=== PATIENT | female | born 1980 | race Hispanic/Latino ===

== ENCOUNTER 2018-01-02 18:20 | Emergency (ER) | payer BC ==
[2018-01-02 19:11] LABS: Urine Blood TRACE (NEG); Urine Glucose NEGATIVE (NEG); Urine Protein NEGATIVE (NEG); Urine Specific Gravity 1.025 (1.005-1.030)
[2018-01-02 19:21] LABS: Absolute Lymphocytes (CBC) 1.7 K/uL (0.7-4.9); Absolute Monocytes 0.8 K/uL (0.1-1.3); Absolute Neutrophil 4.1 K/uL (1.8-8.0); Basophils % 0.5 % (0-1.3); Eosinophils % 4.8 % (0-4.4); Lymphocytes % 24.2 % (15.3-44.8); MCH 27.3 pg (27.0-35.0); MCV 83.1 fL (80-100); MPV 7.6 fL (7.6-11.3); Monocytes % 11.2 % (3.3-12.3); RBC Red Blood Cell Count 4.33 M/uL (3.86-4.86)
[2018-01-02 19:37] LABS: ALT/SGPT 102 U/L (12-78); AST/SGOT 50 U/L (15-37); Albumin 3.4 g/dL (3.4-5.0); Alkaline Phosphatase 159 U/L (45-117); BUN Blood Urea Nitrogen 10 mg/dL (7-18); Bicarbonate 27 mmol/L (21-32); Bilirubin Direct < 0.1 mg/dL (0-0.2); Bilirubin Total 0.1 mg/dL (0.2-1.0); Glucose Level 94 mg/dL (74-106); Lipase 262 U/L (73-393); Potassium 4.1 mmol/L (3.5-5.1); Protein, Total 7.5 g/dL (6.4-8.2); Sodium Level 141 mmol/L (136-145)
[2018-01-02] MEDS ORDERED: AZITHROMYCIN 250 MG TAB ONE (21:52)
[2018-01-02] MEDS ORDERED: CEFTRIAXONE/SWI 1gm 1 GM/10 ML SYR ONE (21:52)
--- NOTE | 2018-01-02 22:14 | RAD REPORT ---
EXAM DESCRIPTION: US - Abdomen Exam Limited - 01/02/2018 9:56 pm CLINICAL HISTORY: elevated liver enzymes COMPARISON: No comparisons FINDINGS: The gallbladder demonstrates significant contraction, limiting assessment. No gross stones seen. No pericholecystic fluid or gallbladder wall thickening. The common bile duct is normal measur ing 2 mm. The liver demonstrates no findings of intrahepatic biliary dilatation. IMPRESSION: Very contracted gallbladder.
--- NOTE | 2018-01-02 22:17 | RAD REPORT ---
EXAM DESCRIPTION: US - Transvaginal Study Probe - 01/02/2018 9:56 pm CLINICAL HISTORY: lower abdomen pain Pelvic pain. COMPARISON: No comparisons FINDINGS: The uterus is normal in size, shape and echotexture. A 2.5 x 1.9 cm fibroid is present in the the fundus of the uterus with probable submucosal extension. The uterus measures 9.0 x 5.3 x 4.9 cm. The endometrial stripe measures 8 mm, normal. Both ovaries are normal in size, shape and echotexture. The right ovary measures 2.5 x 2.6 x 2.5 cm. The left ovary measures 3.0 x 2.6 x 2.6 cm. No ovarian or parovarian lesions. No adnexal masses. Normal Doppler blood flow was demonstrated to both ovaries. No significant pelvic ascites. IMPRESSION: Submucosal fibroid suspected in the fundal aspect of the uterus measuring 2.5 x 1.9 cm.
--- NOTE | 2018-01-02 22:25 | ER ---
Nurse's Notes [facility] Name: Ro Pierre Age: 37 yrs Sex: Female : 1980 Arrival Date: 01/02/2018 Time: 18:23 Bed 23 Private MD: Diagnosis: Abdominal and pelvic pain Presentation: 01/02 18:25 Presenting complaint: Patient states: Pelvic pain and vaginal bleeding that is aj1 described as spotting that has been going on for the past 3 weeks. Reports fatigue, chills. Transition of care: patient was not received from another setting of care. Onset of symptoms was November 2017. Risk Assessment: Do you want to hurt yourself or someone else? Patient reports no desire to harm self or others. Initial Sepsis Screen: Does the patient meet any 2 criteria? HR > 90 bpm. No. Patient's initial sepsis screen is negative. Does the patient have a suspected source of infection? Yes: Other: pelvic pain. Care prior to arrival: None. 18:25 Method Of Arrival: Ambulatory aj1 18:25 Acuity: JORGE 3 aj1 Triage Assessment: 18:29 General: Appears in no apparent distress. comfortable, Behavior is calm, cooperative, aj1 appropriate for age. Pain: Complains of pain in pelvis Pain currently is 5 out of 10 on a pain scale. Neuro: Level of Consciousness is awake, alert, obeys commands. Cardiovascular: Patient's skin is warm and dry. Respiratory: Airway is patent Respiratory effort is even, unlabored, Respiratory pattern is regular, symmetrical. GI: No signs and/or symptoms were reported involving the gastrointestinal system. Reports nausea, Patient currently denies diarrhea, vomiting. : Reports vaginal bleeding that is spotty. 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 - Social history:: Smoking status: Patient/guardian denies using tobacco. - Ebola Screening: : Patient denies travel to an Ebola-affected area in the 21 days before illness onset. Screenin:26 Abuse screen: Denies threats or abuse. Denies injuries from another. Nutritional mg2 screening: No deficits noted. Tuberculosis screening: No symptoms or risk factors identified. Fall Risk IV access (20 points). Assessment: 19:24 General: Appears in no apparent distress. comfortable, Behavior is calm, cooperative. mg2 Pain: Complains of pain in pelvis Pain does not radiate. Pain currently is 4 out of 10 on a pain scale. Quality of pain is described as aching, crampy, Pain began gradually, Is intermittent. Neuro: Level of Consciousness is awake, alert, obeys commands, Oriented to person, place, time, situation. Cardiovascular: Capillary refill < 3 seconds Patient's skin is warm and dry. Respiratory: Airway is patent Respiratory effort is even, unlabored, Respiratory pattern is regular, symmetrical. GI: No signs and/or symptoms were reported involving the gastrointestinal system. : No signs and/or symptoms were reported regarding the genitourinary system. EENT: No signs and/or symptoms were reported regarding the EENT system. EENT: No signs and/or symptoms were reported regarding the EENT system. Reports pain in throat. Derm: Skin is intact, Skin is pink, warm \T\ dry. normal. Musculoskeletal: Reports weakness in whole body. Vital Signs: 18:29 BP 120 / 82; Pulse 96; Resp 18; Temp 97.4; Pulse Ox 99% on R/A; Weight 65.77 kg (R); aj1 Height 4 ft. 11 in. (149.86 cm) (R); Pain 5/10; 19:30 BP 122 / 89; Pulse 89; Resp 18; Pulse Ox 100% on R/A; mg2 21:30 BP 126 / 70; Pulse 80; Resp 18; Pulse Ox 100% on R/A; mg2 22:30 BP 122 / 78; Pulse 78; Resp 18; Pulse Ox 100% on R/A; mg2 18:29 Body Mass Index 29.29 (65.77 kg, 149.86 cm) aj1 ED Course: 18:23 Patient arrived in ED. as 18:29 Triage completed. aj1 18:29 Arm band placed on Patient placed in an exam room. aj1 18:34 Sal Parrish PA is PHCP. cp 18:34 Lexa Concepcion MD is Attending Physician. cp 18:56 Rolando Vaughan RN is Primary Nurse. mg2 19:10 Inserted saline lock: 20 gauge in right antecubital area, using aseptic technique. mg2 Blood collected. 19:26 Patient has correct armband on for positive identification. Placed in gown. Bed in low mg2 position. Call light in reach. Side rails up X 1. Pulse ox on. NIBP on. Door closed. Warm blanket given. 20:21 Assist provider with pelvic exam: Set up pelvic tray. Performed by Sal COBIAN mg2 Specimens sent to lab. Patient tolerated well. 21:52 Ultrasound completed. Patient tolerated well. cy 21:56 US Transvaginal Study (Probe) In Process Unspecified. EDMS 21:56 US Abdomen Limited In Process Unspecified. EDMS 22:34 IV discontinued, intact, bleeding controlled, No redness/swelling at site. Pressure mg2 dressing applied. Administered Medications: 22:00 Drug: Rocephin - (cefTRIAXone) 1 grams Route: IVPB; Infused Over: 30 mins; Site: right mg2 antecubital; 22:34 Follow up: Response: No adverse reaction; IV Status: Completed infusion mg2 22:00 Drug: Zithromax 1 grams Route: PO; mg2 22:34 Follow up: Response: No adverse reaction mg2 Outcome: 22:24 Discharge ordered by MD. cp 22:35 Discharged to home ambulatory. mg2 22:35 Condition: stable 22:35 Discharge instructions given to patient, Instructed on discharge instructions, follow up and referral plans. medication usage, Demonstrated understanding of instructions, follow-up care, medications, Prescriptions given X 3. 22:38 Patient left the ED. mg2 Signatures: Dispatcher [employer] EDArabella Ponce RN RN aj1 Almaz Retana as Sal Parrish PA PA cp Yong, Chheannith cy Gardose, Michele, RN RN mg2 Corrections: (The following items were deleted from the chart) 22:36 21:30 BP 122 / 78; Pulse 78bpm; Resp 18bpm; Pulse Ox 100% RA; mg2 mg2
--- NOTE | 2018-01-02 22:25 | EDPHYS ---
Physician Documentation [facility] Name: Ro Pierre Age: 37 yrs Sex: Female : 1980 Arrival Date: 01/02/2018 Time: 18:23 Bed 23 Private MD: ED Physician Lexa Concepcion HPI: 01/02 19:00 This 37 yrs old Female presents to ER via Ambulatory with complaints of cp Vaginal Bleeding, Pelvic Pain, Mouth Problem. 19:00 The patient presents with pelvic pain. Onset: The symptoms/episode began/occurred 3 cp week(s) ago. Associated signs and symptoms: Pertinent positives: vaginal bleeding, chills/sweats, Pertinent negatives: constipation, fever. Severity of symptoms: in the emergency department the symptoms are unchanged. The patient is sexually active, reportedly has a single partner. 19:00 Patient reports LMP was approximately 3 weeks ago. Since LMP patient reports pelvic cp pain and intermittent vaginal spotting. 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 - Social history:: Smoking status: Patient/guardian denies using tobacco. - Ebola Screening: : Patient denies travel to an Ebola-affected area in the 21 days before illness onset. ROS: 19:07 Eyes: Negative for injury, pain, redness, and discharge. cp 19:07 Constitutional: Positive for chills, Negative for fever, poor PO intake. 19:07 ENT: Negative for drainage from ear(s), ear pain, sore throat, difficulty swallowing, difficulty handling secretions. 19:07 Cardiovascular: Negative for chest pain, edema, palpitations. 19:07 Respiratory: Negative for cough, shortness of breath, wheezing. 19:07 Abdomen/GI: Negative for abdominal pain, nausea, vomiting, and diarrhea, black/tarry stool, rectal bleeding. 19:07 Back: Negative for pain at rest, pain with movement, radiated pain. 19:07 : Positive for pelvic pain, vaginal bleeding, vaginal discharge, Negative for urinary symptoms. 19:07 Skin: Negative for cellulitis, rash. 19:07 Neuro: Negative for altered mental status, headache, weakness. 19:07 All other systems are negative. Exam: 19:11 Constitutional: The patient appears in no acute distress, alert, awake, non-toxic, well cp developed, well nourished. 19:11 Head/Face: Normocephalic, atraumatic. Eyes: Pupils equal round and reactive to light, cp extra-ocular motions intact. Lids and lashes normal. Conjunctiva and sclera are non-icteric and not injected. Cornea within normal limits. Periorbital areas with no swelling, redness, or edema. ENT: Nares patent. No nasal discharge, no septal abnormalities noted. Tympanic membranes are normal and external auditory canals are clear. Oropharynx with no redness, swelling, or masses, exudates, or evidence of obstruction, uvula midline. Mucous membranes moist. Chest/axilla: Normal chest wall appearance and motion. Nontender with no deformity. No lesions are appreciated. 19:11 Cardiovascular: Rate: normal, Rhythm: regular. 19:11 Respiratory: the patient does not display signs of respiratory distress, Respirations: normal, no use of accessory muscles, no retractions, no splinting, no tachypnea, Breath sounds: are clear throughout, no decreased breath sounds, no stridor, no wheezing. 19:11 Abdomen/GI: Inspection: abdomen appears normal, Bowel sounds: active, all quadrants, Palpation: soft, in all quadrants, mild abdominal tenderness, in the right lower quadrant and left lower quadrant, rebound tenderness, is not appreciated, voluntary guarding, is not appreciated, involuntary guarding, is not appreciated. 19:11 Back: pain, is absent, ROM is normal. 19:11 Skin: cellulitis, is not appreciated, no rash present. 21:30 : Pelvic Exam: External exam: is normal, Speculum exam: no bleeding is noted, no cp cervicitis, os that is closed, no tissue in cervix is seen, no tissue in vagina is seen, bimanual exam reveals no cervical motion tenderness, no uterine tenderness, right adnexal tenderness, left adnexal tenderness, no adnexal mass on right, no adnexal mass on left, discharge, scant, the nurse was present for the exam, Sexual behavior: the patient is sexually active, and reports a single partner. Vital Signs: 18:29 BP 120 / 82; Pulse 96; Resp 18; Temp 97.4; Pulse Ox 99% on R/A; Weight 65.77 kg (R); aj1 Height 4 ft. 11 in. (149.86 cm) (R); Pain 5/10; 19:30 BP 122 / 89; Pulse 89; Resp 18; Pulse Ox 100% on R/A; mg2 21:30 BP 126 / 70; Pulse 80; Resp 18; Pulse Ox 100% on R/A; mg2 22:30 BP 122 / 78; Pulse 78; Resp 18; Pulse Ox 100% on R/A; mg2 18:29 Body Mass Index 29.29 (65.77 kg, 149.86 cm) aj1 MDM: 18:34 Patient medically screened. cp 20:00 Differential diagnosis: cervicitis, nonspecific abdominal pain, ovarian cyst, pelvic cp inflammatory disease, uterine fibroids, urinary tract infection, vaginosis. 22:22 Data reviewed: vital signs, nurses notes, lab test result(s), radiologic studies, cp ultrasound. 22:22 Counseling: I had a detailed discussion with the patient and/or guardian regarding: the cp historical points, exam findings, and any diagnostic results supporting the discharge/admit diagnosis, lab results, radiology results, the need for outpatient follow up, an OB/Gyne specialist, to return to the emergency department if symptoms worsen or persist or if there are any questions or concerns that arise at home. Response to treatment: the patient's symptoms have mildly improved after treatment, and as a result, I will discharge patient. 01/02 18:54 Order name: Basic Metabolic Panel; Complete Time: 20:17 cp 01/02 18:54 Order name: CBC with Diff; Complete Time: 20:17 cp 01/02 20:17 Interpretation: Normal except: HGB 11.8; RDW 15.4; EOSINOPHIL % 4.8. cp 01/02 18:54 Order name: Creatinine for Radiology; Complete Time: 20:17 cp 01/02 18:54 Order name: Hepatic Function; Complete Time: 20:17 cp 01/02 18:54 Order name: Lipase; Complete Time: 20:17 cp 01/02 19:00 Order name: GC (GONORR/CHLAMYDIA) Probe cp 01/02 19:00 Order name: Wet Prep; Complete Time: 21:39 cp 01/02 19:04 Order name: Urine Dipstick--Ancillary (enter results); Complete Time: 19:13 cc 01/02 19:13 Interpretation: Normal except: UBLD TRACE. cp 01/02 19:04 Order name: Urine --Ancillary (enter results); Complete Time: 19:13 cc 01/02 20:19 Order name: US Transvaginal Study (Probe); Complete Time: 22:19 cp 01/02 20:19 Order name: US Abdomen Limited; Complete Time: 22:19 cp 01/02 20:23 Order name: Strep; Complete Time: 21:39 mg2 01/02 21:09 Order name: Throat Culture EDMS 01/02 18:54 Order name: IV Saline Lock; Complete Time: 19:10 cp 01/02 18:54 Order name: Labs collected and sent; Complete Time: 19:10 cp 01/02 18:54 Order name: Urine Dipstick-Ancillary (obtain specimen); Complete Time: 19:02 cp 01/02 18:54 Order name: Urine Test (obtain specimen); Complete Time: 19:02 cp 01/02 18:54 Order name: Pelvic Exam Setup; Complete Time: 20:21 cp Administered Medications: 22:00 Drug: Rocephin - (cefTRIAXone) 1 grams Route: IVPB; Infused Over: 30 mins; Site: right mg2 antecubital; 22:34 Follow up: Response: No adverse reaction; IV Status: Completed infusion mg2 22:00 Drug: Zithromax 1 grams Route: PO; mg2 22:34 Follow up: Response: No adverse reaction mg2 Disposition: 01/03 10:26 Co-signature as Attending Physician, Lexa Concepcion MD. rn Disposition: 01/02/18 22:24 Discharged to Home. Impression: Abdominal and pelvic pain. - Condition is Stable. - Discharge Instructions: Pelvic Pain, Female. - Prescriptions for Ibuprofen 800 mg Oral Tablet - take 1 tablet by ORAL route every 8 hours As needed take with food; 30 tablet. Doxycycline Hyclate 100 mg Oral Tablet - take 1 tablet by ORAL route every 12 hours; 20 tablet. Metronidazole 500 mg Oral Tablet - take 1 tablet by ORAL route every 8 hours; 30 tablet. - Medication Reconciliation Form, Thank You Letter, Antibiotic Education, Prescription Opioid Use form. - Follow up: Private Physician; When: 1 week; Reason: pelvic pain. - Problem is new. - Symptoms have improved. Signatures: Dispatcher [employer] EDArabella Ponce RN RN aj1 Lexa Concepcion MD MD rn Sal Parrish PA PA cp Rolando Vaughan RN RN mg2 Corrections: (The following items were deleted from the chart) 01/02 22:38 22:24 01/02/2018 22:24 Discharged to Home. Impression: Abdominal and pelvic pain. mg2 Condition is Stable. Forms are Medication Reconciliation Form, Thank You Letter, Antibiotic Education, Prescription Opioid Use. Follow up: Private Physician; When: 1 week; Reason: pelvic pain. Problem is new. Symptoms have improved. cp
[2018-01-05 18:48] LABS: C.trachomatis RNA,TMA Not Detected (Not Detected)
== END 2018-01-02 22:38 | disposition home or self-care (01) ==
LOC: ER 18:20
DX: R10.2 Pelvic and perineal pain (principal)
CPT/HCPCS: 36415; 76705; 76830; 80048; 80076; 81003; 81025; 83690; 85025; 87070; 87081; 87210; 87490; 87590; 96365; 99284; J0696

== ENCOUNTER 2019-09-24 14:53 | Emergency (ER) | payer BC, SELFPAY ==
[2019-09-24] MEDS ORDERED: METHYLPREDNISOLONE 125 MG INJ ONE (15:21)
[2019-09-24] MEDS ORDERED: DIPHENHYDRAMINE 50 MG/ML VIAL ONE (15:21)
[2019-09-24] MEDS ORDERED: FAMOTIDINE 20 MG/2 ML VIAL IV ONE (15:22)
--- NOTE | 2019-09-24 17:25 | ER ---
Nurse's Notes [facility] Name: Ro Pierre Age: 39 yrs Sex: Female : 1980 Arrival Date: 09/24/2019 Time: 14:54 Bed 25 Private MD: Diagnosis: Acute Allergic Reaction Presentation: 09/23 14:57 Chief complaint: Patient states: Started in the morning, redness on mouth and nose, ca1 lips swollen. Then face got swollen and throat. 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 Reports dizziness. Denies SOB. Coronavirus screen: Proceed with normal triage. Patient denies a cough. Patient denies shortness of breath or difficulty breathing. Patient denies measured and/or subjective temperature greater than 100.4F prior to today's visit. Patient denies travel on a cruise ship or to a country the [facility] currently lists as an affected area. Patient reports contact with known and/or suspected case of COVID-19. CO-worker positive for Covid-19 8-9 days ago. Ebola Screen: Patient negative for fever greater than or equal to 101.5 degrees Fahrenheit, and additional compatible Ebola Virus Disease symptoms Patient denies exposure to infectious person. Patient denies travel to an Ebola-affected area in the 21 days before illness onset. No symptoms or risks identified at this time. Initial Sepsis Screen: Does the patient meet any 2 criteria? No. Patient's initial sepsis screen is negative. Does the patient have a suspected source of infection? No. Patient's initial sepsis screen is negative. Risk Assessment: Do you want to hurt yourself or someone else? Patient reports no desire to harm self or others. 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 - Social history:: Smoking status: Patient denies any tobacco usage or history of. Screenin:51 Abuse screen: Denies threats or abuse. Denies injuries from another. Nutritional ls4 screening: No deficits noted. Tuberculosis screening: No symptoms or risk factors identified. Fall Risk None identified. Assessment: 15:51 Pain: Denies pain. Respiratory: Airway is patent Respiratory effort is even, unlabored. ls4 17:31 Reassessment: Patient appears in no apparent distress at this time. Patient and/or ls4 family updated on plan of care and expected duration. Pain level reassessed. Patient is alert, oriented x 3, equal unlabored respirations, skin warm/dry/pink. Patient denies pain at this time. Patient states feeling better. Patient states symptoms have improved. Vital Signs: 14:57 BP 124 / 97; Pulse 115; Resp 19 S; Temp 98.6(TE); Pulse Ox 100% on R/A; Weight 70.76 kg ca1 (R); Height 4 ft. 11 in. (149.86 cm) (R); 15:51 BP 119 / 85; Pulse 100; Resp 18; Pulse Ox 100% on R/A; Pain 0/10; ls4 17:32 BP 110 / 93; Pulse 88; Resp 16; Pulse Ox 99% ; Pain 0/10; ls4 14:57 Body Mass Index 31.51 (70.76 kg, 149.86 cm) ca1 ED Course: 14:54 Patient arrived in ED. ag5 15:02 Triage completed. ca1 15:02 Arm band placed on right wrist. ca1 15:04 Luke Aguilar PA is PHCP. jr8 15:04 Sal Lucas MD is Attending Physician. jr8 15:10 Initial lab(s) drawn, by ca, held in ED. Inserted saline lock: 20 gauge in left ca1 antecubital area, using aseptic technique. Blood collected. 15:11 Sheron Kraft, RN is Primary Nurse. ls4 15:51 No apparent distress. ls4 15:51 Patient has correct armband on for positive identification. Bed in low position. Call ls4 light in reach. Side rails up X 1. campus monitor on. Pulse ox on. NIBP on. Warm blanket given. Verbal reassurance given. 15:51 No provider procedures requiring assistance completed. ls4 15:51 Patient maintains SpO2 saturation greater than 95% on room air. ls4 Administered Medications: 15:14 Drug: Pepcid 20 mg Route: IVP; Site: left antecubital; ca1 15:16 Drug: SOLU-Medrol 125 mg Route: IVP; Site: left antecubital; ca1 15:18 Not Given (Duplicate Order): Benadryl 25 mg IVP once ca1 15:18 Not Given (Duplicate Order): SOLU-Medrol 125 mg IVP once ca1 15:18 Not Given (Duplicate Order): Pepcid 20 mg IVP once ca1 15:18 Drug: Benadryl 25 mg Route: IVP; Site: left antecubital; ca1 Outcome: 17:24 Discharge ordered by MD. lane 17:44 Patient left the ED. iw Signatures: Latha Garza, RN RN iw Luke Aguilar PA PA jr8 Sheron Kraft, RN RN ls4 Flor Sidhu RN RN ca1 Jean Friedman ag5 Corrections: (The following items were deleted from the chart) 15:03 14:57 Chief complaint: Patient states: Started in the morning, redness on mouth and ca1 nose, lips swollen. Then face got swollen and throat. 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 Reports dizziness. Denies SOB. ca1
--- NOTE | 2019-09-24 17:25 | EDPHYS ---
Physician Documentation [facility] Name: Ro Pierre Age: 39 yrs Sex: Female : 1980 Arrival Date: 09/24/2019 Time: 14:54 Bed 25 Private MD: ED Physician Sal Lucas HPI: 09/23 15:49 This 39 yrs old Female presents to ER via Ambulatory with complaints of jr8 Allergic Reaction. 15:49 The patient presents with itching, redness of skin, swelling of the lips. Onset: The jr8 symptoms/episode began/occurred acutely, today. Associated signs and symptoms: The patient has no apparent associated signs or symptoms. Possible causes: The patient has no known obvious cause for the symptoms. At home the patient or guardian has treated the symptoms with Benadryl. Severity of symptoms: At their worst the symptoms were moderate in the emergency department the symptoms are unchanged. The patient has not experienced similar symptoms in the past. The patient has not recently seen a physician. Patient stated that she woke up feeling that her face was burning and slightly itchy. Stated that her face was red. Stated that her lips started to swell. Took 2 Benadryl a while ago but did not feel any relief . 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 - Social history:: Smoking status: Patient denies any tobacco usage or history of. ROS: 15:49 Eyes: Negative for injury, pain, redness, and discharge, ENT: Negative for injury, jr8 pain, and discharge. Positive for swelling Neck: Negative for injury, pain, and swelling, Cardiovascular: Negative for chest pain, palpitations, and edema, Respiratory: Negative for shortness of breath, cough, wheezing, and pleuritic chest pain, Abdomen/GI: Negative for abdominal pain, nausea, vomiting, diarrhea, and constipation, Back: Negative for injury and pain, MS/Extremity: Negative for injury and deformity, Skin: Positive for redness and rash to face Neuro: Negative for headache, weakness, numbness, tingling, and seizure. Exam: 15:49 Eyes: Pupils equal round and reactive to light, extra-ocular motions intact. Lids and jr8 lashes normal. Conjunctiva and sclera are non-icteric and not injected. Cornea within normal limits. Periorbital areas with no swelling, redness, or edema. ENT: Nares patent. No nasal discharge, no septal abnormalities noted. Tympanic membranes are normal and external auditory canals are clear. Oropharynx with no redness, swelling, or masses, exudates, or evidence of obstruction, uvula midline. Mucous membranes moist. Neck: Trachea midline, no thyromegaly or masses palpated, and no cervical lymphadenopathy. Supple, full range of motion without nuchal rigidity, or vertebral point tenderness. No Meningismus. Cardiovascular: Regular rate and rhythm with a normal S1 and S2. No gallops, murmurs, or rubs. Normal PMI, no JVD. No pulse deficits. Respiratory: Lungs have equal breath sounds bilaterally, clear to auscultation and percussion. No rales, rhonchi or wheezes noted. No increased work of breathing, no retractions or nasal flaring. Abdomen/GI: Soft, non-tender, with normal bowel sounds. No distension or tympany. No guarding or rebound. No evidence of tenderness throughout. Back: No spinal tenderness. No costovertebral tenderness. Full range of motion. Skin: Warm, dry with normal turgor. Normal color with no rashes, no lesions, and no evidence of cellulitis. MS/ Extremity: Pulses equal, no cyanosis. Neurovascular intact. Full, normal range of motion. Neuro: Awake and alert, GCS 15, oriented to person, place, time, and situation. Cranial nerves II-XII grossly intact. Motor strength 5/5 in all extremities. Sensory grossly intact. Cerebellar exam normal. Normal gait. 15:49 Head/face: Noted is Patient has mild erythema noted to face diffusely. Mild swelling noted to bottom of right eye. Vital Signs: 14:57 BP 124 / 97; Pulse 115; Resp 19 S; Temp 98.6(TE); Pulse Ox 100% on R/A; Weight 70.76 kg ca1 (R); Height 4 ft. 11 in. (149.86 cm) (R); 15:51 BP 119 / 85; Pulse 100; Resp 18; Pulse Ox 100% on R/A; Pain 0/10; ls4 17:32 BP 110 / 93; Pulse 88; Resp 16; Pulse Ox 99% ; Pain 0/10; ls4 14:57 Body Mass Index 31.51 (70.76 kg, 149.86 cm) ca1 MDM: 15:04 Patient medically screened. jr8 17:23 Data reviewed: vital signs, nurses notes, and as a result, I will discharge patient. jr8 Data interpreted: Pulse oximetry: on room air is 100 %. Interpretation: normal. Counseling: I had a detailed discussion with the patient and/or guardian regarding: the historical points, exam findings, and any diagnostic results supporting the discharge/admit diagnosis, the need for outpatient follow up, a family practitioner, to return to the emergency department if symptoms worsen or persist or if there are any questions or concerns that arise at home. Response to treatment: the patient's symptoms have resolved after treatment. 09/23 15:18 Order name: IV; Complete Time: 15:18 [facility] Administered Medications: 15:14 Drug: Pepcid 20 mg Route: IVP; Site: left antecubital; ca1 15:16 Drug: SOLU-Medrol 125 mg Route: IVP; Site: left antecubital; ca1 15:18 Not Given (Duplicate Order): Benadryl 25 mg IVP once ca1 15:18 Not Given (Duplicate Order): SOLU-Medrol 125 mg IVP once ca1 15:18 Not Given (Duplicate Order): Pepcid 20 mg IVP once ca1 15:18 Drug: Benadryl 25 mg Route: IVP; Site: left antecubital; ca1 Disposition: 18:47 Co-signature as Attending Physician, Sal Lucas MD I agree with the assessment and nick plan of care. Disposition: 09/24/19 17:24 Discharged to Home. Impression: Acute Allergic Reaction . - Condition is Stable. - Discharge Instructions: Anaphylactic Reaction, Adult. - Prescriptions for Prednisone 20 mg Oral Tablet - take 2 tablet by ORAL route once daily for 5 days; 10 tablet. - Medication Reconciliation Form, Thank You Letter, Antibiotic Education, Prescription Opioid Use form. - Follow up: Private Physician; When: 2 - 3 days; Reason: Recheck today's complaints, Continuance of care, Re-evaluation by your physician. - Problem is new. - Symptoms have improved. - Notes: Benadryl as needed every 4-6 hours Pepcid 20 mg once a day for next 5 days Signatures: Sal Lucas MD MD cha Williams, Irene, HENRY RN iw Luke Aguilar PA PA jr8 Flor Sidhu RN RN ca1 Corrections: (The following items were deleted from the chart) 17:44 17:24 09/24/2019 17:24 Discharged to Home. Impression: Acute Allergic Reaction . iw Condition is Stable. Forms are Medication Reconciliation Form, Thank You Letter, Antibiotic Education, Prescription Opioid Use. Follow up: Private Physician; When: 2 - 3 days; Reason: Recheck today's complaints, Continuance of care, Re-evaluation by your physician. Problem is new. Symptoms have improved. jr8
[2019-09-24 17:58] VITALS: TEMP 98.6
[2019-09-24 18:01] VITALS: BP 110/93; O2SAT 99
== END 2019-09-24 17:44 | disposition home or self-care (01) ==
LOC: ER 14:53
DX: T78.40XA Allergy, unspecified, initial encounter (principal); X58.XXXA Exposure to other specified factors, initial encounter
CPT/HCPCS: 96374; 96375; 99285; J1200; J2930

== ENCOUNTER 2019-12-30 01:40 | Emergency (ER) | payer SELFPAY ==
--- OUTSIDE RECORDS SUMMARY | 2019-12-30 01:42 | XMS REPORT | Summary of Care ---
:1980 Author Organization [facility] Address [address] [place] [id number] Care Team Providers Name Role Phone Pcp, Patient Does Not Have A Primary Care Provider +[id number] 0-0000 Reason for Visit Reason Comments LAB covid Encounter Details Date Type Department Care Team Description 10/18/2019 Laboratory Only [facility] Family Mary Jo Ghosh, ORGANIC PREPARATION ANALYST [address] [address] Suspected Covid-19 [facility], Ad[facility] Fam Pob I Virus Infection [address] [place] [address] (Primary D x) [place] [address] Allergies Not on Filedocumented as of this encounter (statuses as of 10/18/2019) Medications Not on filedocumented as of this encounter (statuses as of 10/18/2019) Active Problems Not on filedocumented as of this encounter (statuses as of 10/18/2019) Social History Tobacco Use Types Packs/Day Years Used Date Never Assessed Sex Assigned at Date Recorded Not on file Job Start Date Occupation Industry Not on file Not on file Not on file Travel History Travel Start Travel End No recent travel history available. COVID-19 Exposure Response Date Recorded In the last month, have you been in contact with Yes 10/18/2019 9:05 AM CDT someone who was confirmed or suspected to have Coronavirus / COVID-19? documented as of this encounter Last Filed Vital Signs Not on filedocumented in this encounter Plan of Treatment Name Type Priority Associated Diagnoses Order S chedule COVID-19 (PCR MOLECULAR LAB Routine Suspected Covid-1 9 Virus Expected: 10/18/2019, TESTING) Infection Expires: 2020 Health Maintenance Due Date Last Done Comments DTaP,Tdap,and Td Vaccines (1 - 1989 Tdap) Depression Screening 1990 PAP SMEAR 09/23/1999 Breast Cancer Screening 2018 (MAMMOGRAM) INFLUENZA VACCINE (#1) 2019 PNEUMOCOCCAL 0-64 YEARS COMBINED Aged Out No longer eligible based on SERIES patient's age to complete this topic documented as of this encounter Results Not on filedocumented in this encounter Visit Diagnoses Diagnosis Suspected Covid-19 Virus Infection - [facility] documented in this encounter Additional Health Concerns Infection Onset Date Last Indicated Resolved Time COVID-19 Rule Out 10/18/2019 10/18/2019 documented as of this encounter
--- OUTSIDE RECORDS SUMMARY | 2019-12-30 01:42 | XMS REPORT | Continuity of Care Document ---
:1980 Author Organization [facility] t Address [address] [place] [address] Care Team Providers Name Role Phone Lab, [facility] Fam Pob I Attending Clinician Unavailable Problems This patient has no known problems. Allergies, Adverse Reactions, Alerts This patient has no known allergies or adverse reactions. Medications This patient has no known medications. Procedures This patient has no known procedures. Encounters Start End Encounter Admission Attending Care Care Encounter Source Date/Time Date/Time Type Type Clinicians Facility Department ID 2019-10-18 2019-10-18 Laboratory Lab, [facility] [id number] 09:04:30 09:24:30 Only Fam Pob I Health [id number] [facility] [id number] [facility] [phone] [phone] 2019-09-27 2019-09-27 Laboratory Lab, [facility] [id number] 17:03:11 17:04:28 Only Fam Pob I Health [id number] [facility] [id number] [facility] [phone] [phone] Results This patient has no known results.
[2019-12-30] MEDS ORDERED: MORPHINE 4 MG/ML SYR ONE ×2 (02:33→02:58)
[2019-12-30] MEDS ORDERED: ONDANSETRON 4 MG/2 ML VIAL ONE (02:33)
[2019-12-30 02:58] LABS: Absolute Lymphocytes (CBC) 2.5 K/uL (0.7-4.9); Hematocrit 37.4 % (36.0-45.0); Lymphocytes % 32.8 % (15.3-44.8); RBC Red Blood Cell Count 4.86 M/uL (3.86-4.86)
[2019-12-30] MEDS ORDERED: KETOROLAC 30 MG/ML INJ ONE (02:59)
[2019-12-30] MEDS ORDERED: TAMSULOSIN 0.4 MG SR CAP ONE (02:59)
[2019-12-30] MEDS ORDERED: MAGNESIUM SULFATE 1 gm IVPB 1 GM/100 ML BAG IV ONE (02:59)
[2019-12-30 03:10] LABS: ALT/SGPT 27 U/L (12-78); AST/SGOT 16 U/L (15-37); Albumin 3.9 g/dL (3.4-5.0); Alkaline Phosphatase 130 U/L (45-117); BUN Blood Urea Nitrogen 9 mg/dL (7-18); Bicarbonate 25 mmol/L (21-32); Bilirubin Direct < 0.1 mg/dL (0-0.2); Bilirubin Total 0.3 mg/dL (0.2-1.0); Glucose Level 99 mg/dL (74-106); Lipase 133 U/L (73-393); Potassium 3.1 mmol/L (3.5-5.1); Protein, Total 8.3 g/dL (6.4-8.2); Sodium Level 141 mmol/L (136-145)
[2019-12-30] MEDS ORDERED: HYDROCODONE/APAP 10/325 TAB ONE (04:00)
--- NOTE | 2019-12-30 04:14 | ER ---
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 Coronavirus screen: Client denies travel out of the [place] in the last 14 days. At this time, the client does not indicate any symptoms associated with coronavirus-19. Initial Sepsis Screen: Does the patient meet any 2 criteria? HR > 90 bpm. Does the patient have a suspected source of infection? Yes: Acute abdominal pain. Risk Assessment: Do you want to hurt yourself or someone else? Patient reports no desire to harm self or others. Onset of symptoms was December 30, 2019. Care prior to arrival: None. Transition of care: patient was not received from another setting of care. 01:49 Method Of Arrival: Ambulatory sg 01:49 Acuity: JORGE 3 sg 01:49 Ebola Screen: Patient negative for fever greater than or equal to 101.5 degrees sg Fahrenheit, and additional compatible Ebola Virus Disease symptoms Patient denies exposure to infectious person. Patient denies travel to an Ebola-affected area in the 21 days before illness onset. No symptoms or risks identified at this time. 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 - Social history:: Smoking status: Patient denies any tobacco usage or history of. - Family history:: not pertinent. - Hospitalizations: : No recent hospitalization is reported. Screenin:10 Abuse screen: Denies threats or abuse. Nutritional screening: No deficits noted. jb4 Tuberculosis screening: No symptoms or risk factors identified. Fall Risk None identified. Assessment: 02:10 General: Appears in no apparent distress. uncomfortable, Behavior is cooperative, jb4 appropriate for age, anxious, crying, restless. Pain: Complains of pain in left lower quadrant Pain radiates to left low back Pain currently is 10 out of 10 on a pain scale. Quality of pain is described as Labor pains. Neuro: Level of Consciousness is awake, alert, obeys commands, Oriented to person, place, time, situation. Cardiovascular: Patient's skin is warm and dry. Respiratory: Airway is patent Respiratory effort is even, unlabored, Respiratory pattern is regular, symmetrical. GI: No signs and/or symptoms were reported involving the gastrointestinal system. : No signs and/or symptoms were reported regarding the genitourinary system. Reports pain in left flank(s). EENT: No signs and/or symptoms were reported regarding the EENT system. Derm: Skin is intact, Skin is pink, warm \T\ dry. Musculoskeletal: Circulation, motion, and sensation intact. Range of motion: intact in all extremities. 03:50 Reassessment: Patient appears in no apparent distress at this time. Patient and/or jb4 family updated on plan of care and expected duration. Pain level reassessed. Patient is alert, oriented x 3, equal unlabored respirations, skin warm/dry/pink. Pt reports pain is now 4/10 Patient states feeling better. Patient states symptoms have improved. Vital Signs: 01:49 Pulse 96; Resp 16; Pulse Ox 100% on R/A; Weight 74.84 kg; Height 5 ft. 4 in. (162.56 sg cm); Pain 10/10; 01:49 BP 146 / 103; sg 02:30 BP 138 / 62; Pulse 84; Resp 16; Pulse Ox 98% on R/A; jb4 03:30 BP 132 / 86; Pulse 84; Resp 16; Pulse Ox 100% on R/A; jb4 01:49 Body Mass Index 28.32 (74.84 kg, 162.56 cm) ED Course: 01:42 Patient arrived in ED. cl3 01:47 Lexa Concepcion MD is Attending Physician. rn 01:51 Triage completed. sg 01:51 Arm band placed on. sg 02:10 Patient has correct armband on for positive identification. Bed in low position. Call jb4 light in reach. Side rails up X 1. Pulse ox on. NIBP on. 02:10 Initial lab(s) drawn, by me, sent to lab. Inserted saline lock: 18 gauge in right jb4 antecubital area, using aseptic technique. Blood collected. 02:33 Neil Bernal, RN is Primary Nurse. jb4 03:02 CT Stone Protocol In Process Unspecified. EDMS 04:24 No provider procedures requiring assistance completed. IV discontinued, intact, jb4 bleeding controlled, No redness/swelling at site. Pressure dressing applied. Administered Medications: 02:21 Drug: Zofran (Ondansetron) 4 mg Route: IVP; Site: right antecubital; 4 03:00 Follow up: Response: No adverse reaction jb4 02:23 Drug: morphine 4 mg {Note: rass score 0.} Route: IVP; Site: right antecubital; 4 02:45 Follow up: Response: No adverse reaction; Pain is unchanged, physician notified; RASS: [facility] Restless (+1) 02:46 Drug: morphine 4 mg {Note: rass score 1.} Route: IVP; Site: right antecubital; 4 03:00 Follow up: Response: No adverse reaction; Pain is decreased; RASS: Alert and Calm (0) jb4 02:47 Drug: TORadol - Ketorolac 15 mg Route: IVP; Site: right antecubital; jb4 03:01 Follow up: Response: No adverse reaction; Pain is decreased jb4 02:47 Drug: Magnesium Sulfate 1 grams Route: IVPB; Infused Over: 1 hrs; Site: right jb4 antecubital; 03:47 Follow up: Response: No adverse reaction; IV Status: Completed infusion jb4 02:47 Drug: Flomax 0.4 mg Route: PO; jb4 03:44 Follow up: Response: No adverse reaction 4 03:50 Drug: Reading 10 mg-325 mg 1 tabs Route: PO; jb4 04:26 Follow up: Response: No adverse reaction; Pain is decreased; RASS: Alert and Calm (0) [facility] Outcome: 04:13 Discharge ordered by . rn 04:24 Discharged to home ambulatory. jb4 04:24 Condition: stable 04:24 Discharge instructions given to patient, Instructed on discharge instructions, follow up and referral plans. medication usage, Demonstrated understanding of instructions, follow-up care, medications, Prescriptions given X 2. 04:26 Patient left the ED. jb4 Signatures: Dispatcher [employer] EDBrannon Shay RN RN sg Nieto, Roman, MD MD rn Bryson, James, RN RN jb4 Oleg Reed cl3
--- NOTE | 2019-12-30 04:14 | EDPHYS ---
Physician Documentation [facility] Name: Ro Pierre Age: 39 yrs Sex: Female : 1980 Arrival Date: 12/30/2019 Time: 01:42 Bed 14 Private MD: ED Physician Lexa Concepcion HPI: 12/29 01:56 This 39 yrs old Female presents to ER via Ambulatory with complaints of Side rn Pain. 01:56 The patient presents with abdominal pain in the left lower quadrant. Onset: The rn symptoms/episode began/occurred 45 minute(s) ago. The symptoms do not radiate. Associated signs and symptoms: Pertinent positives: nausea, Pertinent negatives: blood in stools, constipation, diarrhea, dysuria, fever. The symptoms are described as intermittent, sharp. Modifying factors: The symptoms are alleviated by nothing, the symptoms are aggravated by nothing. Severity of pain: At its worst the pain was moderate in the emergency department the pain is unchanged. The patient has experienced a previous episode. Reports left flank pain, began 45 min ago, not letting up, reports passed kidney stone about 1 month ago, no trauma. No fever. Mcdaniel fine yesterday, did not feel ill, no diarrhea. . 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 - Social history:: Smoking status: Patient denies any tobacco usage or history of. - Family history:: not pertinent. - Hospitalizations: : No recent hospitalization is reported. ROS: 01:56 Constitutional: Negative for fever, chills, and weight loss, Eyes: Negative for injury, rn pain, redness, and discharge, Neck: Negative for injury, pain, and swelling, Cardiovascular: Negative for chest pain, palpitations, and edema, Respiratory: Negative for shortness of breath, cough, wheezing, and pleuritic chest pain, Abdomen/GI: + LLQ abd pain Back: + left flank pain MS/Extremity: Negative for injury and deformity, Skin: Negative for injury, rash, and discoloration, Neuro: Negative for headache, weakness, numbness, tingling, and seizure. Exam: 01:56 Constitutional: This is a well developed, well nourished patient who is awake, alert, rn appears uncomfortable Head/Face: Normocephalic, atraumatic. Cardiovascular: Regular rate and rhythm. No pulse deficits. Respiratory: No increased work of breathing, no retractions or nasal flaring. Abdomen/GI: soft, non-tender, no masses Skin: Warm, dry MS/ Extremity: Pulses equal, no cyanosis. Neurovascular intact. Full, normal range of motion. Equal circumference. Neuro: Awake and alert, GCS 15, oriented to person, place, time, and situation. Cranial nerves II-XII grossly intact. Motor strength 5/5 in all extremities. Sensory grossly intact. Vital Signs: 01:49 Pulse 96; Resp 16; Pulse Ox 100% on R/A; Weight 74.84 kg; Height 5 ft. 4 in. (162.56 sg cm); Pain 10/10; 01:49 BP 146 / 103; sg 02:30 BP 138 / 62; Pulse 84; Resp 16; Pulse Ox 98% on R/A; jb4 03:30 BP 132 / 86; Pulse 84; Resp 16; Pulse Ox 100% on R/A; jb4 01:49 Body Mass Index 28.32 (74.84 kg, 162.56 cm) sg MDM: 01:47 Patient medically screened. rn 04:10 Differential diagnosis: Ureterolithiasis. Data reviewed: vital signs, nurses notes, petroleum laboratory technician test result(s), radiologic studies, CT scan, and as a result, I will discharge patient. Counseling: I had a detailed discussion with the patient and/or guardian regarding: the historical points, exam findings, and any diagnostic results supporting the discharge/admit diagnosis, lab results, radiology results, the need for outpatient follow up, to return to the emergency department if symptoms worsen or persist or if there are any questions or concerns that arise at home. Response to treatment: the patient's symptoms have markedly improved after treatment, and as a result, I will discharge patient. Special discussion: I discussed with the patient/guardian in detail that at this point there is no indication for admission to the hospital. It is understood, however, that if the symptoms persist or worsen the patient needs to return immediately for re-evaluation. ED course: Markedly improved, will dc home. Return precautions given and understood. . 12/29 01:55 Order name: Basic Metabolic Panel rn 12/29 01:55 Order name: CBC with Diff rn 12/29 01:55 Order name: Hepatic Function rn 12/29 01:55 Order name: Lipase rn 12/29 01:55 Order name: Urine Microscopic Only rn 12/29 04:05 Order name: Urine Dipstick--Ancillary (enter results) tt3 12/29 01:55 Order name: CT Stone Protocol rn 12/29 01:55 Order name: IV Saline Lock; Complete Time: 02:37 rn 12/29 01:55 Order name: Labs collected and sent; Complete Time: 02:37 rn 12/29 01:55 Order name: Urine Dipstick-Ancillary (obtain specimen); Complete Time: 04:19 rn Administered Medications: 02:21 Drug: Zofran (Ondansetron) 4 mg Route: IVP; Site: right antecubital; 4 03:00 Follow up: Response: No adverse reaction jb4 02:23 Drug: morphine 4 mg {Note: rass score 0.} Route: IVP; Site: right antecubital; jb4 02:45 Follow up: Response: No adverse reaction; Pain is unchanged, physician notified; RASS: [facility] Restless (+1) 02:46 Drug: morphine 4 mg {Note: rass score 1.} Route: IVP; Site: right antecubital; jb4 03:00 Follow up: Response: No adverse reaction; Pain is decreased; RASS: Alert and Calm (0) jb4 02:47 Drug: TORadol - Ketorolac 15 mg Route: IVP; Site: right antecubital; jb4 03:01 Follow up: Response: No adverse reaction; Pain is decreased jb4 02:47 Drug: Magnesium Sulfate 1 grams Route: IVPB; Infused Over: 1 hrs; Site: right jb4 antecubital; 03:47 Follow up: Response: No adverse reaction; IV Status: Completed infusion jb4 02:47 Drug: Flomax 0.4 mg Route: PO; jb4 03:44 Follow up: Response: No adverse reaction jb4 03:50 Drug: [place] 10 mg-325 mg 1 tabs Route: PO; jb4 04:26 Follow up: Response: No adverse reaction; Pain is decreased; RASS: Alert and Calm (0) jb4 Disposition: 12/30/19 04:13 Discharged to Home. Impression: Calculus of ureter. - Condition is Stable. - Discharge Instructions: Kidney Stones, Renal Colic, Dietary Guidelines to Help Prevent Kidney Stones. - Prescriptions for Zofran ODT 4 mg Oral tablet,disintegrating - place 1 tablet by TRANSLINGUAL route as directed As needed; 15 tablet. Tylenol- Codeine #3 300-30 mg Oral Tablet - take 1 tablet by ORAL route every 6 hours As needed; 15 tablet. - Medication Reconciliation Form, Thank You Letter, Antibiotic Education, Prescription Opioid Use form. - Follow up: Private Physician; When: As needed; Reason: Recheck today's complaints, Re-evaluation by your physician. - Problem is new. - Symptoms have improved. Signatures: Dispatcher [employer] EDMS Brannon Osman RN RN sg Nieto, Roman, MD MD rn Bryson, James, RN RN jb4 Corrections: (The following items were deleted from the chart) 02:37 01:55 Urine Test ordered. kong jb4 04:26 04:13 12/30/2019 04:13 Discharged to Home. Impression: Calculus of ureter. Condition is jb4 Stable. Forms are Medication Reconciliation Form, Thank You Letter, Antibiotic Education, Prescription Opioid Use. Follow up: Private Physician; When: As needed; Reason: Recheck today's complaints, Re-evaluation by your physician. Problem is new. Symptoms have improved. rn
[2019-12-30 04:47] VITALS: BP 132/86; O2SAT 100
[2019-12-30 05:29] LABS: Urine Blood 2+ (NEG); Urine Glucose NEGATIVE (NEG); Urine Protein NEGATIVE (NEG); Urine Specific Gravity 1.025 (1.005-1.030)
[2019-12-30 05:32] LABS: Urine Bacteria <20 /HPF (<20); Urine Culture Reflex Order NOT NEEDED; Urine RBC >50 /HPF (NONE SEEN)
--- NOTE | 2019-12-30 22:21 | RAD REPORT ---
EXAM DESCRIPTION: CT - Stone Protocol - 12/30/2019 6:34 am CLINICAL HISTORY: Left flank pain COMPARISON: None Available. TECHNIQUE: CT of the abdomen and pelvis without IV contrast. Evaluation of the solid organs and vasc ulature is suboptimal due to lack of IV contrast. FINDINGS: Lung Bases: The visualized lung bases are clear. Bones: Degenerative change of the spine. Abdomen: Liver: The liver has normal size and density. Gallbladder: No calcified gallstones. Spleen, Pancreas, and Adrenal Glands: The spleen, pancreas, and adrenal glands are unremarkable. Kidneys: There is a 0.4 cm obstructing calculus in the distal left ureter. Mild left hydronephrosis a nd hydroureter. Punctate bilateral nonobstructing nephrolithiasis Vasculature: The aorta and IVC have normal caliber and position. Stomach: The stomach and duodenum have normal course. Other: No free intraperitoneal air. No free fluid or lymphadenopathy. Minimal haziness of the lef t anterior abdominal subcutaneous soft tissues. Tiny fat-containing umbilical hernia. Pelvis: Bladder: Urinary bladder is unremarkable. Bowel: No dilated loops of large or small bowel. Appendix: Normal appendix. Pelvis: Uterus is not enlarged. IMPRESSION: 1. There is a 0.4 cm obstructing calculus in the distal left ureter producing mild left hydroureter and hydronephrosis. 2. Punctate nonobstructing bilateral nephrolithiasis. This exam was performed according to our departmental dose-optimization program, which includes autom ated exposure control, adjustment of the mA and/or kV according to patient size and/or use of iterati ve reconstruction technique. Electronically signed by: Jamie Beck 12/30/2019 3:22 AM CDT Due to temporary technical issues with the PACS/Fluency reporting system, reports are being signed by the in house radiologist without review as a courtesy to ensure prompt reporting. The interpreting r adiologist is fully responsible for the content of the report.
== END 2019-12-30 04:26 | disposition home or self-care (01) ==
LOC: ER 01:40
DX: N20.1 Calculus of ureter (principal)
CPT/HCPCS: 36415; 74176; 76377; 80048; 80076; 81003; 81015; 83690; 85025; 96365; 96375; 99284; J2405; J3475